=== PATIENT | female | born 1975 | race African-American/Black ===

== ENCOUNTER 2016-11-07 07:20 | Day surgery (SDCO) | payer MEDICARE, OTHER ==
[~2016-11-07] VITALS: Ht 165.1 cm; Wt 115.4 kg
== END 2016-11-07 14:50 | disposition home or self-care (01) ==
LOC: FAS 07:20 → EDSTATUS 08:15 → FAS 08:15 → FMS 10:34
PROVIDERS: ADMIT Surgery
DX: E66.01 Morbid (severe) obesity due to excess calories (principal); Z68.41 Body mass index [BMI] 40.0-44.9, adult; K21.9 Gastro-esophageal reflux disease without esophagitis; G40.909 Epilepsy, unspecified, not intractable, without status epilepticus; I10 Essential (primary) hypertension; E55.9 Vitamin D deficiency, unspecified; Z98.51 Tubal ligation status; Z98.890 Other specified postprocedural states; Z83.3 Family history of diabetes mellitus; Z79.51 Long term (current) use of inhaled steroids; Z79.899 Other long term (current) drug therapy
CPT/HCPCS: 84703; 86850; 86900; 86901; 94010; 94762; A4212; C1788; G0378; J0690; J1170; J3010